=== PATIENT | male | born 1955 | race Caucasian/White ===

== ENCOUNTER 2018-06-20 09:58 | Inpatient (IN) | payer OTHER ==
[~2018-06-20] VITALS: Ht 172.7 cm; Wt 74.8 kg
[2018-06-20] MEDS ORDERED: NAPR-1009 PO (10:18)
[2018-06-20 11:50] LABS: *BILIRUBIN,URIN NEGATIVE (NEGATIVE); *BLOOD, URINE 3+ (NEGATIVE); *CLARITY,URINE CLOUDY (CLEAR); *COLOR,URINE DARK YELLOW (YELLOW); *KETONES,URINE NEGATIVE (NEGATIVE); *PROTEIN,URINE 2+ (NEGATIVE); *UROBILINOGEN,URINE 0.2 E.U./dl (NORMAL); LEUKOCYTE ESTERASE ,URINE 1+ (NEGATIVE); NITRITE, URINE NEGATIVE (NEGATIVE); UGLUCOSE 1+ (NEGATIVE)
[2018-06-20 11:54] LABS: BACTERIA,URINE FEW /HPF (NONE SEEN); RBC,URINE TNTC /HPF (0-3); SQUAMOUS EPITHELIAL CELL,UR FEW /HPF (NONE SEEN)
[2018-06-20 11:54] LABS: BASOPHILS # (AUTO) 0.1 K/uL (0.0-8.0); BASOPHILS % (AUTO) 1.1 % (0.0-2.0); EOSINOPHILS # (AUTO) 0.8 K/uL (0.0-0.7); EOSINOPHILS % (AUTO) 12.4 % (0.0-7.0); HEMATOCRIT 41.7 % (36.7-47.1); LYMPHOCYTES # (AUTO) 1.6 K/uL (20.0-40.0); LYMPHOCYTES % (AUTO) 23.9 % (20.5-51.5); MEAN CORPUSCULAR HEMOGLOBIN 27.4 uug (23.8-33.4); MEAN CORPUSCULAR HGB CONC 34 g/dL (32.5-36.3); MEAN CORPUSCULAR VOLUME 81.4 fL (73.0-96.2); MONOCYTES # (AUTO) 0.4 K/uL (2.0-10.0); NEUTROPHILS # (AUTO) 3.8 K/uL (1.8-8.9); NEUTROPHILS % (AUTO) 56.6 % (38.5-71.5); PLATELET COUNT (AUTO) 234 K/uL (152-348); RED BLOOD CELL COUNT(AUTO) 5.12 MIL/uL (4.06-5.63); WHITE BLOOD COUNT (AUTO) 6.8 K/uL (3.6-10.2)
[2018-06-20 12:09] LABS: CREATININE 1.1 mg/dL (0.6-1.3)
[2018-06-20 12:21] LABS: BILIRUBIN,DIRECT 0.1 mg/dL (0.0-0.2); BILIRUBIN,TOTAL 0.3 mg/dL (0.2-1.0); TOTAL PROTEIN, SERUM 7.1 g/dL (6.4-8.2)
[2018-06-20 16:13] VITALS: BP 151/79
[2018-06-20] MEDS ORDERED: ACETAMINOPHEN 325 MG TABLET PO PRN (17:00)
[2018-06-20] MEDS ORDERED: Z GUARD REMEDY PASTE 57 GM TUBE TOP PRN (17:00)
[2018-06-20] MEDS ORDERED: ONDANSETRON 4 MG/2 ML VIAL IV PRN (17:00)
[2018-06-20] MEDS ORDERED: MAGNESIUM HYDROXIDE 30 ML LIQUID UDC PO PRN (17:00)
[2018-06-20] MEDS ORDERED: CEFTRIAXONE 1 G in IV DEXTROSE 5% 50 ML IV SCH (17:00)
[2018-06-20] MEDS ORDERED: ZOLPIDEM 5 MG TABLET PO PRN (17:00)
[2018-06-20] MEDS: HYDROCODONE/APAP 5-325MG TABLET PO PRN (18:32)
[2018-06-20] MEDS: LEVOFLOXACIN 500 MG/D5W 500 MG in PREMIXED 1 EACH IV SCH (18:36)
[2018-06-20 20:08] VITALS: BP 139/78
[2018-06-20] MEDS ORDERED: KETOROLAC TROMETHAMINE 15 MG INJ IVP PRN (23:15)
[2018-06-20] MEDS: TAMSULOSIN HCL 0.4 MG CAP.SR.24H PO SCH (23:36)
[2018-06-21 05:19] VITALS: BP 131/77
[2018-06-21 06:09] LABS: BASOPHILS % (AUTO) 0.7 % (0.0-2.0); EOSINOPHILS # (AUTO) 0.5 K/uL (0.0-0.7); EOSINOPHILS % (AUTO) 9.3 % (0.0-7.0); HEMATOCRIT 39.3 % (36.7-47.1); HEMOGLOBIN 13.5 g/dL (12.5-16.3); LYMPHOCYTES # (AUTO) 1.3 K/uL (20.0-40.0); LYMPHOCYTES % (AUTO) 23.1 % (20.5-51.5); MEAN CORPUSCULAR HEMOGLOBIN 27.5 uug (23.8-33.4); MEAN CORPUSCULAR HGB CONC 34 g/dL (32.5-36.3); MEAN CORPUSCULAR VOLUME 80.1 fL (73.0-96.2); MONOCYTES # (AUTO) 0.4 K/uL (2.0-10.0); MONOCYTES % (AUTO) 6.3 % (0.0-11.0); NEUTROPHILS # (AUTO) 3.5 K/uL (1.8-8.9); NEUTROPHILS % (AUTO) 60.6 % (38.5-71.5); PLATELET COUNT (AUTO) 209 K/uL (152-348); RED BLOOD CELL COUNT(AUTO) 4.91 MIL/uL (4.06-5.63); WHITE BLOOD COUNT (AUTO) 5.7 K/uL (3.6-10.2)
[2018-06-21 06:33] LABS: CREATININE 1.2 mg/dL (0.6-1.3); MAGNESIUM 1.7 mg/dL (1.8-2.4); PHOSPHOROUS 2.9 mg/dL (2.5-4.9); POTASSIUM 3.7 mmol/L (3.5-5.1)
[2018-06-21 10:54] VITALS: BP 147/77
[2018-06-21] MEDS ORDERED: MAGNESIUM SULFATE/D5W 100 ML IV SCH (11:00)
[2018-06-21] MEDS: BLOOD SUGAR DIAGNOSTIC 1 EACH STRIP VI SCH ×3 (12:15→20:32)
[2018-06-21] MEDS ORDERED: DEXTROSE 50% 50 ML DISP.SYRIN IV PRN (12:15)
[2018-06-21 15:14] VITALS: BP 151/79
[2018-06-21] MEDS: LEVOFLOXACIN 500 MG/D5W 500 MG in PREMIXED 1 EACH IV SCH (17:08)
[2018-06-21 20:00] VITALS: BP 143/73
[2018-06-21] MEDS: TAMSULOSIN HCL 0.4 MG CAP.SR.24H PO SCH (20:26)
[2018-06-21] MEDS: INSULIN REGULAR, HUMAN 300 UNIT/3 ML VIAL SQ PRN (20:34)
[2018-06-21] MEDS ORDERED: ATORVASTATIN 20 MG TABLET PO SCH (21:00)
[2018-06-22 04:00] VITALS: BP 125/77
[2018-06-22] MEDS: BLOOD SUGAR DIAGNOSTIC 1 EACH STRIP VI SCH ×2 (05:29→11:36)
[2018-06-22] MEDS: HYDROCODONE/APAP 5-325MG TABLET PO PRN (09:39)
[2018-06-22] MEDS: INSULIN REGULAR, HUMAN 300 UNIT/3 ML VIAL SQ PRN (11:35)
[2018-06-22 12:00] VITALS: BP 129/73
[2018-06-22] MEDS ORDERED: MICAFUNGIN SODIUM 100 MG in IV NORMAL SALINE 100 ML IV SCH (12:00)
[2018-06-22] MEDS ORDERED: CEPH-570 PO (13:28)
[2018-06-22] MEDS ORDERED: FLUC200T PO (13:28)
== END 2018-06-22 12:40 | disposition home or self-care (01) | DRG 501 ==
LOC: ER 09:58 → MED 14:28
PROVIDERS: ADMIT Nurse Practitioner Acute Care; ATTEND Nurse Practitioner Acute Care
DX: B37.49 Other urogenital candidiasis (principal); E11.65 Type 2 diabetes mellitus with hyperglycemia; I51.7 Cardiomegaly; N20.2 Calculus of kidney with calculus of ureter; J98.11 Atelectasis; N21.0 Calculus in bladder; Z96.0 Presence of urogenital implants; Z59.0 Homelessness; Z87.440 Personal history of urinary (tract) infections; Z87.442 Personal history of urinary calculi
CPT/HCPCS: 36415; 70030-TC; 71045; 83605; 83690; 83735; 84100; 85025; 85730; 87040; 87086; 93005; A4663; G0378; J1815; J1885; J1956; J2248; J3475; J3490

== ENCOUNTER 2018-09-22 06:36 | Inpatient (IN) | payer OTHER ==
[~2018-09-22] VITALS: Ht 172.7 cm; Wt 72.6 kg
[~2018-09-22 06:36] MED LIST: CEPH-570 PO; FLUC200T PO; NAPR-1009 PO
--- NOTE | 2018-09-22 07:04 | NUR ---
RECEIVED SHIFT REPORT FROM KIM Wang RN. TACTICAL RESPONSE GROUP OFFICER AT BEDSIDE. PT ASLEEP IN BED AT THIS TIME. VSS.
--- NOTE | 2018-09-22 07:08 | NUR ---
PT TAKEN TO RADIOLOGY FOR CT SCAN.
[2018-09-22 07:16] LABS: BASOPHILS % (AUTO) 0.4 % (0.0-2.0); EOSINOPHILS # (AUTO) 0.3 K/uL (0.0-0.7); EOSINOPHILS % (AUTO) 4.1 % (0.0-7.0); HEMATOCRIT 35.1 % (36.7-47.1); HEMOGLOBIN 11.5 g/dL (12.5-16.3); LYMPHOCYTES # (AUTO) 0.7 K/uL (20.0-40.0); LYMPHOCYTES % (AUTO) 9.7 % (20.5-51.5); MEAN CORPUSCULAR HEMOGLOBIN 25.7 uug (23.8-33.4); MEAN CORPUSCULAR HGB CONC 33 g/dL (32.5-36.3); MEAN CORPUSCULAR VOLUME 78.7 fL (73.0-96.2); MONOCYTES # (AUTO) 0.5 K/uL (2.0-10.0); MONOCYTES % (AUTO) 6.6 % (0.0-11.0); NEUTROPHILS # (AUTO) 6.1 K/uL (1.8-8.9); NEUTROPHILS % (AUTO) 79.2 % (38.5-71.5); PLATELET COUNT (AUTO) 312 K/uL (152-348); RED BLOOD CELL COUNT(AUTO) 4.47 MIL/uL (4.06-5.63); WHITE BLOOD COUNT (AUTO) 7.6 K/uL (3.6-10.2)
--- NOTE | 2018-09-22 07:26 | NUR ---
PT BACK IN ER FROM RADIOLOGY.
[2018-09-22 07:27] LABS: CARBON DIOXIDE 25 mmol/L (21-32); CHLORIDE 104 mmol/L (98-107); CREATININE 1.3 mg/dL (0.6-1.3); GLUCOSE 139 mg/dL (74-106); POTASSIUM 3.5 mmol/L (3.5-5.1); UREA NITROGEN, BLOOD 16 mg/dL (7-18)
[2018-09-22 07:30] LABS: ETHANOL < 3 MG/DL (0-0)
[2018-09-22 07:38] LABS: ACETAMINOPHEN < 2.0 ug/mL (10-30); ALANINE AMINOTRANSFERASE 20 U/L (16-63); ALKALINE PHOSPHATASE 56 U/L (50-136); ASPARTATE AMINOTRANSFERASE 14 U/L (15-37); BILIRUBIN,DIRECT 0.1 mg/dL (0.0-0.2); BILIRUBIN,TOTAL 0.3 mg/dL (0.2-1.0); TOTAL PROTEIN, SERUM 6.3 g/dL (6.4-8.2)
[2018-09-22 07:50] LABS: *BILIRUBIN,URIN NEGATIVE (NEGATIVE); *BLOOD, URINE 3+ (NEGATIVE); *CLARITY,URINE CLOUDY (CLEAR); *COLOR,URINE YELLOW (YELLOW); *KETONES,URINE NEGATIVE (NEGATIVE); *UROBILINOGEN,URINE 0.2 E.U./dl (NORMAL); LEUKOCYTE ESTERASE ,URINE 3+ (NEGATIVE); NITRITE, URINE NEGATIVE (NEGATIVE); PH,URINE 6.5 (5.0-8.0); UGLUCOSE TRACE (NEGATIVE)
--- NOTE | 2018-09-22 07:56 | NUR ---
PAGED EPIC FOR PANEL CALL - AWAITING CALLBACK. ATTEMPT 1.
[2018-09-22] MEDS ORDERED: IV NORMAL SALINE 1000 ML BAG IV ONE (08:00)
[2018-09-22 08:03] LABS: *AMPHETAMINE, URINE NEGATIVE (NEGATIVE); *BARBITURATE, URINE NEGATIVE (NEGATIVE); *CANNABINOID, URINE NEGATIVE (NEGATIVE); *COCCAINE, URINE NEGATIVE (NEGATIVE); *OPIATE, URINE POSITIVE (NEGATIVE); *PHENCYCLIDINE SCREEN,URINE NEGATIVE (NEGATIVE); BACTERIA,URINE FEW /HPF (NONE SEEN); RBC,URINE 20-50 /HPF (0-3); SQUAMOUS EPITHELIAL CELL,UR FEW /HPF (NONE SEEN); WBC,URINE TNTC /HPF (0-3)
[2018-09-22] MEDS ORDERED: IV NORMAL SALINE 250 ML IV ONE (08:06)
[2018-09-22] MEDS ORDERED: IOHEXOL 350 100 ML INFUS..BTL ONE (08:06)
[2018-09-22] MEDS ORDERED: SWABABLE VALVE TRANSFER SET EA MC ONE (08:06)
--- NOTE | 2018-09-22 08:21 | NUR ---
IBRAHIMA ARREGUIN, AND SAKSHI CARROLL AT BEDSIDE FOR PT EVAL.
--- NOTE | 2018-09-22 08:25 | NUR ---
CONSENT FOR CTA BRAIN & CAROTIDS SIGNED BY SAKSHI CARROLL DUE TO PT'S INABILITY TO SIGN AT THIS TIME.
--- NOTE | 2018-09-22 08:29 | NUR ---
PT TAKEN TO RADIOLOGY FOR CTA.
--- NOTE | 2018-09-22 08:36 | NUR ---
ADMITTING REPORT GIVEN TO ANGE MARIE.
--- NOTE | 2018-09-22 08:50 | NUR ---
APt. admitted to TELE 305, under care of IBRAHIMA ARREGUIN. Belongs List completed
[2018-09-22] MEDS ORDERED: hydrALAZINE HCL 20 MG/1 ML VIAL IV PRN (09:00)
[2018-09-22] MEDS ORDERED: MAG HYDROX/AL HYDROX/SIMETH 30 ML LIQUID UDC PO PRN (09:00)
--- NOTE | 2018-09-22 09:00 | NUR ---
RECEIVED PATIENT FROM ER VIA GURNEY AND ADMITTED TO TELE, WITH NO C/O PAIN OR DISCOMFORT AT THIS TIME. IV ON THE RIGHT AC INTACT AND PATENT , BED ON LOW POSITION, FAMILY PARTNER AILS UPX2 AND HOB ELEVATED. SAFETY PROVIDED AT ALL TIMES, WILL CONTINUE TREATMENT PLAN.
[2018-09-22 09:12] LABS: THYROID STIMULATING HORMONE < 0.007 mIU/mL (0.358-3.740)
[2018-09-22] MEDS: DOCUSATE SODIUM 100 MG CAPSULE PO SCH (10:16)
[2018-09-22] MEDS: ASPIRIN EC 81 MG TABLET.DR PO SCH (10:16)
[2018-09-22] MEDS: ENOXAPARIN SODIUM 40 MG/0.4 ML DISP.SYRIN SQ SCH (10:17)
[2018-09-22] MEDS: BLOOD SUGAR DIAGNOSTIC 1 EACH STRIP VI SCH ×4 (11:30→21:33)
[2018-09-22 11:58] VITALS: BP 152/62
[2018-09-22] MEDS ORDERED: BLOOD SUGAR DIAGNOSTIC 1 EACH STRIP VI SCH (12:00)
[2018-09-22] MEDS ORDERED: HYDROMORPHONE 1 MG/1 ML DISP.SYRIN IV PRN (14:30)
[2018-09-22] MEDS: CEphaleXIN 500 MG CAPSULE PO SCH ×2 (14:51→23:02)
[2018-09-22] MEDS: KETOROLAC TROMETHAMINE 15 MG INJ IVP PRN (15:17)
--- NOTE | 2018-09-22 15:40 | NUR ---
patient refuse ct scan patient states that he does not need it because he already knows that he has kidney stones and that he is getting surgery for it.
--- NOTE | 2018-09-22 17:30 | NUR ---
patient alert and oriented, gave orange juice to patient due to low blood sugar and was able to tolerate it. dinner tray on the table.
[2018-09-22 17:56] VITALS: BP 136/61
--- NOTE | 2018-09-22 18:41 | NUR ---
PATIENT LAYING IN BE COMFORTABLY WITH NO C/O PAIN AT THIS TIME, NO S/S OF ACUTE DISTRESS NOTED IV INTACT AND AND PATENT . BED IN LOW POSITION WITH SIDE RAILS UP X2 AND HOB ELEVATED. SAFETY PROVIDED AT ALL TIMES, WILL CONTINUE TREATMENT PLAN WITH MOTOR HOTEL MANAGER
[2018-09-22] MEDS: MORPHINE SULFATE 4 MG/1 ML DISP.SYRIN IV PRN ×2 (19:08→23:20)
[2018-09-22] MEDS: IV NS 1000 ML 1,000 ML IV PRN (19:13)
[2018-09-22] MEDS: SIMVASTATIN 20 MG TABLET PO SCH (20:14)
[2018-09-22] MEDS: ACETAMINOPHEN 325 MG TABLET PO SCH (20:14)
[2018-09-22 20:54] VITALS: BP 164/74
[2018-09-22] MEDS ORDERED: DEXTROSE 50% 50 ML DISP.SYRIN IV PRN (21:00)
--- NOTE | 2018-09-22 23:22 | NUR ---
PRN Morphine given per patients request for Generalized pain 04/07.
[2018-09-23] VITALS: BP 136/64
--- NOTE | 2018-09-23 00:51 | NUR ---
IV Dextrose 50% effective as evidenced by current Blood glucose test result of 186. Will continue to monitor.
[2018-09-23 04:00] VITALS: BP 152/69
[2018-09-23] MEDS: PANTOPRAZOLE SODIUM 40 MG TABLET.DR PO SCH (06:57)
[2018-09-23] MEDS: BLOOD SUGAR DIAGNOSTIC 1 EACH STRIP VI SCH ×8 (06:57→21:21)
[2018-09-23] MEDS: CEphaleXIN 500 MG CAPSULE PO SCH ×3 (06:57→21:10)
[2018-09-23 07:02] LABS: BASOPHILS % (AUTO) 0.5 % (0.0-2.0); EOSINOPHILS # (AUTO) 0.6 K/uL (0.0-0.7); EOSINOPHILS % (AUTO) 8.1 % (0.0-7.0); HEMATOCRIT 34.1 % (36.7-47.1); LYMPHOCYTES # (AUTO) 1.5 K/uL (20.0-40.0); LYMPHOCYTES % (AUTO) 21.5 % (20.5-51.5); MEAN CORPUSCULAR HEMOGLOBIN 25.4 uug (23.8-33.4); MEAN CORPUSCULAR HGB CONC 32 g/dL (32.5-36.3); MEAN CORPUSCULAR VOLUME 78.9 fL (73.0-96.2); MONOCYTES # (AUTO) 0.6 K/uL (2.0-10.0); MONOCYTES % (AUTO) 8.5 % (0.0-11.0); NEUTROPHILS # (AUTO) 4.3 K/uL (1.8-8.9); NEUTROPHILS % (AUTO) 61.4 % (38.5-71.5); PLATELET COUNT (AUTO) 291 K/uL (152-348); RED BLOOD CELL COUNT(AUTO) 4.33 MIL/uL (4.06-5.63)
[2018-09-23 07:15] LABS: CREATININE 1.2 mg/dL (0.6-1.3); POTASSIUM 4.1 mmol/L (3.5-5.1)
[2018-09-23] MEDS: METHIMAZOLE 5 MG TABLET PO SCH (08:23)
[2018-09-23] MEDS: ASPIRIN EC 81 MG TABLET.DR PO SCH (08:23)
[2018-09-23] MEDS: DOCUSATE SODIUM 100 MG CAPSULE PO SCH (08:23)
[2018-09-23] MEDS: ENOXAPARIN SODIUM 40 MG/0.4 ML DISP.SYRIN SQ SCH (08:26)
[2018-09-23] MEDS: NICOTINE 14 MG/24HR PATCH TD SCH (08:29)
[2018-09-23] MEDS: MORPHINE SULFATE 4 MG/1 ML DISP.SYRIN IV PRN ×4 (09:25→20:33)
[2018-09-23] MEDS: IV NS 1000 ML 1,000 ML IV PRN (09:27)
[2018-09-23 11:30] VITALS: BP 155/67
--- NOTE | 2018-09-23 11:47 | NUR ---
Bruna was making care rounds when patient verbalized SI. Bruna made myself aware, I immediately went to patient and patient states " I want to know when I am going to be discharged to I can end my life." I explored patient feelings, patient does not voice plan at this time, just states "I can not live anymore" I asked if patient had any family, patient denies. I then asked if patient has friends, Patient states "Not anymore. They dropped off my stuff and said dont call anymore." Encouraged patient to not feel hopeless and that we are here to help. Andre aware, sitter ordered, crisis team called. Will closely monitor patient until sitter arrives. Reena, human resources supervisor aware of sitter order and situation.
[2018-09-23] MEDS: LISINOPRIL 5 MG TABLET PO SCH ×2 (11:58→21:10)
[2018-09-23] MEDS ORDERED: OLANZAPINE 10 MG VIAL IM ONE (14:30)
--- NOTE | 2018-09-23 15:09 | NUR ---
After Cliff assesed the patient a 5150 was placed. Explained the situation to the patient and the need to remove all belongings from room. Patient wants to kepp phone and computer at bedside and refusing to surrender these items. Security and melt house supervisor were called to assist. Upon removing items from room patient became aggressive and combative and yelling. Patient removed IV line and telemonitor. Dr Contreras was called and a 1time order for Zyprexa IM was given. Patient apprehensive when myself entered room and started to yell profanity. IM injection was given in DANIEL, sitter at bedside. Belongings were documented and locked in MHU, will continue to closely monitor.
--- NOTE | 2018-09-23 15:25 | NUR ---
Patient more calm, attempted to place tele monitor back on however patient refusing. Per Dr Apodaca, if patient refusing, order may be removed.
[2018-09-23] MEDS: PHENAZOPYRIDINE HCL 100 MG TABLET PO SCH (17:39)
[2018-09-23] MEDS: KETOROLAC TROMETHAMINE 15 MG INJ IVP PRN (17:39)
--- NOTE | 2018-09-23 18:40 | NUR ---
Patient resting comfortably in bed at this time with 1:1 sitter. More compliant at this time, allowed IV to be reinserted and medicated for pain however refusing fluids to be resumed at this time. Allowed tele monitor to be placed back on. No falls throughout shift, tolerating diet.
--- NOTE | 2018-09-23 19:00 | NUR ---
RECEIVED PATIENT SLEEPING COMFORTABLY IN BED WITH 1:1 SITTER FOR SAFETY. NO SIGNS OR SYMPTOMS OF ACUTE DISTRESS OR DISCOMFORT NOTED OR OBSERVED. BED IN LOW POSITION AND WITH 2 SIDERAILS UP. ALL SAFETY MEASURES IN PLACE. WILL CONTINUE TO MONITOR.
[2018-09-23 20:15] VITALS: BP 119/58
[2018-09-23] MEDS ORDERED: ATORVASTATIN 10 MG TABLET PO SCH (21:00)
[2018-09-23] MEDS: ACETAMINOPHEN 325 MG TABLET PO SCH (21:09)
[2018-09-23] MEDS: SIMVASTATIN 20 MG TABLET PO SCH (21:10)
--- NOTE | 2018-09-24 | NUR ---
PATIENT NPO FOR CONSENTED THYROID BIOPSY TODAY. SIGN POSTED ON DOOR, CARAFE EMPTIED OF REMAINING WATER, AND DRINKING CUPS/STRAWS REMOVED FROM ROOM.
[2018-09-24 04:30] VITALS: BP 163/72
--- NOTE | 2018-09-24 05:31 | NUR ---
INFORMATION SENT: FACESHEET,PROGRESS NOTES 09/23,UR 09-23 INSURANCE NAME:PETE GIBSON O / [facility] FAX NUMBER: [phone] FAX SENT
--- NOTE | 2018-09-24 05:50 | NUR ---
PATIENT ASLEEP AND RESTING COMFORTABLY IN BED. PATIENT HAS 1:1 SITTER FOR SAFETY OF SELF AND OTHERS. PATIENT WAS CALM AND SLEPT THROUGHOUT SHIFT. NPO ORDER IN PLACE DUE TO CONSENTED THYROID BIOPSY SCHEDULED FOR TODAY. PATIENT IS AO X 3 AND HAS BEEN COOPERATIVE AND CALM DURING THIS SHIFT. TELE SINUS RHYTHM @ 60. VS WNL. PATIENT STABLE.
[2018-09-24] MEDS: PANTOPRAZOLE SODIUM 40 MG TABLET.DR PO SCH (06:30)
[2018-09-24] MEDS: CEphaleXIN 500 MG CAPSULE PO SCH ×3 (06:31→21:05)
[2018-09-24] MEDS: BLOOD SUGAR DIAGNOSTIC 1 EACH STRIP VI SCH ×4 (06:38→21:11)
[2018-09-24 06:41] LABS: BASOPHILS % (AUTO) 0.7 % (0.0-2.0); EOSINOPHILS # (AUTO) 0.6 K/uL (0.0-0.7); EOSINOPHILS % (AUTO) 9.1 % (0.0-7.0); HEMOGLOBIN 11.4 g/dL (12.5-16.3); LYMPHOCYTES # (AUTO) 1.9 K/uL (20.0-40.0); LYMPHOCYTES % (AUTO) 29.1 % (20.5-51.5); MEAN CORPUSCULAR HEMOGLOBIN 25.8 uug (23.8-33.4); MEAN CORPUSCULAR HGB CONC 33 g/dL (32.5-36.3); MONOCYTES # (AUTO) 0.5 K/uL (2.0-10.0); MONOCYTES % (AUTO) 7.4 % (0.0-11.0); NEUTROPHILS # (AUTO) 3.5 K/uL (1.8-8.9); NEUTROPHILS % (AUTO) 53.7 % (38.5-71.5); PLATELET COUNT (AUTO) 272 K/uL (152-348); RED BLOOD CELL COUNT(AUTO) 4.43 MIL/uL (4.06-5.63); WHITE BLOOD COUNT (AUTO) 6.6 K/uL (3.6-10.2)
[2018-09-24 06:44] LABS: CREATININE 1.5 mg/dL (0.6-1.3)
[2018-09-24 07:02] LABS: IRON, SERUM 43 ug/dL (50-175)
[2018-09-24 07:15] LABS: FERRITIN 103 ng/mL (26-388)
--- NOTE | 2018-09-24 08:00 | NUR ---
Sleeping, appears comfortable. 1:1 sitter at bedside.
[2018-09-24] MEDS: ENOXAPARIN SODIUM 40 MG/0.4 ML DISP.SYRIN SQ SCH (09:00)
[2018-09-24] MEDS: NICOTINE 14 MG/24HR PATCH TD SCH ×2 (09:00→09:50)
[2018-09-24] MEDS: DOCUSATE SODIUM 100 MG CAPSULE PO SCH (09:49)
[2018-09-24] MEDS: ASPIRIN EC 81 MG TABLET.DR PO SCH (09:49)
[2018-09-24] MEDS: METHIMAZOLE 5 MG TABLET PO SCH (09:50)
[2018-09-24] MEDS: PHENAZOPYRIDINE HCL 100 MG TABLET PO SCH ×3 (09:50→17:18)
[2018-09-24] MEDS: LISINOPRIL 5 MG TABLET PO SCH ×2 (09:50→21:05)
[2018-09-24] MEDS: MORPHINE SULFATE 4 MG/1 ML DISP.SYRIN IV PRN ×3 (09:58→19:45)
--- NOTE | 2018-09-24 10:00 | NUR ---
Clarified preparation for thyroid biopsy, okay to eat meal, resumed. Breakfast served and medications given. Complaining of suprapubic pain/spasm. Morphine given with relief
[2018-09-24] MEDS: SERTRALINE HCL 50 MG TABLET PO SCH (12:27)
[2018-09-24] MEDS: INSULIN REGULAR, HUMAN 300 UNIT/3 ML VIAL SQ PRN ×2 (12:30→21:36)
[2018-09-24] MEDS: KETOROLAC TROMETHAMINE 15 MG INJ IVP PRN (12:37)
--- NOTE | 2018-09-24 12:37 | NUR ---
Complaining of pain with urination. Toradol given with out relief
--- NOTE | 2018-09-24 14:33 | NUR ---
Morphine IV given for suprapubic pain, with relief
--- NOTE | 2018-09-24 15:30 | NUR ---
Transported to ultrasound for thyroid biopsy
--- NOTE | 2018-09-24 16:30 | NUR ---
Back to room, s/p thyroid biopsy. Vital signs taken and recorded.
--- NOTE | 2018-09-24 17:17 | NUR ---
Blood glucose 52, juice given with dinner served.
[2018-09-24 17:49] VITALS: BP 143/63
--- NOTE | 2018-09-24 17:54 | NUR ---
Blood glucose rechecked 94. Patient comfortable, not in distress.
--- NOTE | 2018-09-24 19:00 | NUR ---
RECEIVED PATIENT AWAKE AND ALERT IN BED. IV ON RIGHT WRIST PATENT AND INTACT. PATIENT COMPLAINED OF PAIN 10/10, REQUESTED PRESCRIBED MORPHINE, AND PROVIDED ORDERED. 1:1 SITTER FOR SAFETY OF SELF AND OTHERS. ALL SAFETY MEASURES IN EFFECT. CALL LIGHT WITHIN REACH AT ALL TIMES. WILL CONTINUE TO MONITOR.
[2018-09-24] MEDS: SIMVASTATIN 20 MG TABLET PO SCH (21:04)
[2018-09-24] MEDS: ACETAMINOPHEN 325 MG TABLET PO SCH (21:04)
[2018-09-24] MEDS: FERROUS SULFATE 325 MG TABEC PO SCH (21:05)
[2018-09-24] MEDS: HYDROCODONE/APAP 5-325MG TABLET PO PRN (21:38)
--- NOTE | 2018-09-25 04:57 | NUR ---
PATIENT SLEPT THROUGH THE NIGHT WITH ZERO EPISODES OF WAKING. VS WNL, TELE SINUS @ 71, PATIENT STABLE. 1:1 SITTER PROVIDED FOR PROTECTION FROM SELF AND OTHERS. PATIENT COMPLIANT WITH ALL ASPECTS OF CARE. ORDERED ANTIBIOTICS PROVIDED PRESCRIBED AND TOLERATED WELL. ALL NURSING CARE NEEDS MET PROMPTLY. CALL LIGHT WITHIN REACH AT ALL TIMES. REPORT TO BE GIVEN TO AM SHIFT.
[2018-09-25 05:05] VITALS: BP 159/74
[2018-09-25] MEDS: CEphaleXIN 500 MG CAPSULE PO SCH ×3 (05:39→21:12)
[2018-09-25 05:40] LABS: BASOPHILS % (AUTO) 0.6 % (0.0-2.0); EOSINOPHILS # (AUTO) 0.7 K/uL (0.0-0.7); EOSINOPHILS % (AUTO) 9.8 % (0.0-7.0); HEMATOCRIT 33.8 % (36.7-47.1); HEMOGLOBIN 11.1 g/dL (12.5-16.3); LYMPHOCYTES # (AUTO) 1.6 K/uL (20.0-40.0); LYMPHOCYTES % (AUTO) 21.8 % (20.5-51.5); MEAN CORPUSCULAR HEMOGLOBIN 25.9 uug (23.8-33.4); MEAN CORPUSCULAR HGB CONC 33 g/dL (32.5-36.3); MEAN CORPUSCULAR VOLUME 78.6 fL (73.0-96.2); MONOCYTES # (AUTO) 0.6 K/uL (2.0-10.0); MONOCYTES % (AUTO) 8.1 % (0.0-11.0); NEUTROPHILS # (AUTO) 4.3 K/uL (1.8-8.9); NEUTROPHILS % (AUTO) 59.7 % (38.5-71.5); PLATELET COUNT (AUTO) 276 K/uL (152-348); WHITE BLOOD COUNT (AUTO) 7.3 K/uL (3.6-10.2)
[2018-09-25] MEDS: BLOOD SUGAR DIAGNOSTIC 1 EACH STRIP VI SCH ×4 (05:47→21:14)
[2018-09-25 05:54] LABS: CREATININE 1.4 mg/dL (0.6-1.3); POTASSIUM 4.1 mmol/L (3.5-5.1)
[2018-09-25] MEDS: PANTOPRAZOLE SODIUM 40 MG TABLET.DR PO SCH (06:15)
--- NOTE | 2018-09-25 07:25 | NUR ---
RECEIVED PATIENT IN BED AWAKE ALERT WITH EYES CLOSED BUT AROUSES EASILY HAS A SITTER OBSERVER AT THE BEDSIDE DENOES ST AT THIS TIME REMAIN ON HOLD ORDERED NO S/S OF HYPO/HYPERGLYCEMIC REACTIONS NOT IN DISTRESS AT THIS TIME.
[2018-09-25 08:07] LABS: *IMMUNOGLOBULIN G, SERUM 733 mg/dL (700-1600); IMMUNOGLOBULIN A, SERUM 103 mg/dL (61-437); IMMUNOGLOBULIN M, SERUM 31 mg/dL (20-172)
[2018-09-25] MEDS: DOCUSATE SODIUM 100 MG CAPSULE PO SCH (08:36)
[2018-09-25] MEDS: ASPIRIN EC 81 MG TABLET.DR PO SCH (08:36)
[2018-09-25] MEDS: FERROUS SULFATE 325 MG TABEC PO SCH ×2 (08:36→21:12)
[2018-09-25] MEDS: NICOTINE 14 MG/24HR PATCH TD SCH (08:36)
[2018-09-25] MEDS: PHENAZOPYRIDINE HCL 100 MG TABLET PO SCH ×3 (08:37→16:49)
[2018-09-25] MEDS: METHIMAZOLE 5 MG TABLET PO SCH (08:37)
[2018-09-25] MEDS: LISINOPRIL 5 MG TABLET PO SCH ×2 (08:37→21:13)
[2018-09-25] MEDS: ENOXAPARIN SODIUM 40 MG/0.4 ML DISP.SYRIN SQ SCH (08:43)
--- NOTE | 2018-09-25 09:00 | NUR ---
NOTED THAT PATIENT HAS AN ORDER FOR IVF INFORMED PATIENT AND HE STATED I AM DRINKING ENOUGH AND DID NOT WANT TO BE CONNECTED AT THIS TIME.COMPLIANT WITH OTHER MEDICATIONS WILL INFORM THE PROVIDER
[2018-09-25 11:18] VITALS: BP 150/68
[2018-09-25] MEDS: INSULIN REGULAR, HUMAN 300 UNIT/3 ML VIAL SQ PRN ×3 (11:35→21:15)
[2018-09-25] MEDS: SERTRALINE HCL 50 MG TABLET PO SCH (12:17)
[2018-09-25] MEDS: HYDROCODONE/APAP 5-325MG TABLET PO PRN (12:17)
[2018-09-25] MEDS: LORAZEPAM 1 MG TABLET PO PRN (12:45)
--- NOTE | 2018-09-25 12:45 | NUR ---
GETTING ANXIOUS STANDING IN THE MIDDLE OF THE HALLWAY NEEDING CONSTANT REDIRECTIONS MEDICATED WITH ATIVAN ORDERED WILL CONTINUE TO OBSERVE REMAIN ON ONE ON ONE SITTER FOR SAFETY WILL CONTINUE TO PROVIDE SAFE AND THERAPEUTIC ENVIRONMENT AT ALL TIMES.
[2018-09-25] MEDS: MORPHINE SULFATE 4 MG/1 ML DISP.SYRIN IV PRN ×2 (13:25→17:31)
[2018-09-25 14:19] LABS: *OCCULT BLOOD STOOL NEGATIVE (NEGATIVE)
[2018-09-25 15:08] VITALS: BP 151/69
--- NOTE | 2018-09-25 15:15 | NUR ---
DR MURRAY HERE TO SEE PATIENT WITH NO NEW ORDERS AT THIS TIME
--- NOTE | 2018-09-25 17:00 | NUR ---
PATIENT VERBALISED INTENT TO KILL SELF IF HE DOES NOT GET HIS WAY BUT DID NOT ELABORATE HOW HE INTENDS TO DO IT CONTINUE TO REFUSE IVF WHEN OFFERED BUT COMPLIANT WITH HIS ORAL MEDICATIONS
[2018-09-25 19:37] VITALS: BP 156/65
--- NOTE | 2018-09-25 19:40 | NUR ---
PATIENT AWAKE SITTING ON BED, , 1:1 SITTER ON THE BED SIDE. PATIENT CALM AND CO OPERATIVE AT THIS TIME . NO VERBALIZATION OF SUICIDAL THOUGHTS. PATIENT CONCERNED ABOUT THE TRANSPORTATION TO [facility] FOR SURGERY AND THE FUTURE CARE. ASSURED THE PATIENT THAT WILL INFORM THE SYS DIR ABOUT THE CONCERN. CHARGE NURSE AWARE
--- NOTE | 2018-09-25 20:00 | NUR ---
PATIENT CONTINUING TO REFUSE IV FLUIDS.
[2018-09-25] MEDS: SIMVASTATIN 20 MG TABLET PO SCH (21:12)
[2018-09-25] MEDS: ACETAMINOPHEN 325 MG TABLET PO SCH (21:13)
[2018-09-26] MEDS: MORPHINE SULFATE 4 MG/1 ML DISP.SYRIN IV PRN ×3 (00:22→18:25)
[2018-09-26 00:40] VITALS: BP 135/59
[2018-09-26 04:00] VITALS: BP 146/68
[2018-09-26 05:40] LABS: BASOPHILS % (AUTO) 0.7 % (0.0-2.0); EOSINOPHILS # (AUTO) 0.7 K/uL (0.0-0.7); EOSINOPHILS % (AUTO) 9.3 % (0.0-7.0); HEMATOCRIT 32.5 % (36.7-47.1); HEMOGLOBIN 10.7 g/dL (12.5-16.3); LYMPHOCYTES # (AUTO) 1.5 K/uL (20.0-40.0); LYMPHOCYTES % (AUTO) 20.7 % (20.5-51.5); MEAN CORPUSCULAR HGB CONC 33 g/dL (32.5-36.3); MEAN CORPUSCULAR VOLUME 79.2 fL (73.0-96.2); MONOCYTES # (AUTO) 0.6 K/uL (2.0-10.0); MONOCYTES % (AUTO) 8.8 % (0.0-11.0); NEUTROPHILS # (AUTO) 4.3 K/uL (1.8-8.9); NEUTROPHILS % (AUTO) 60.5 % (38.5-71.5); PLATELET COUNT (AUTO) 272 K/uL (152-348)
[2018-09-26 05:52] LABS: CREATININE 1.4 mg/dL (0.6-1.3); POTASSIUM 3.9 mmol/L (3.5-5.1)
[2018-09-26] MEDS: PANTOPRAZOLE SODIUM 40 MG TABLET.DR PO SCH (06:06)
[2018-09-26] MEDS: CEphaleXIN 500 MG CAPSULE PO SCH ×3 (06:06→21:24)
--- NOTE | 2018-09-26 06:45 | NUR ---
Patient slept for 5 hrs and 10 minutes. No suicidal ideation noted. 1:1 sitter at the bed side. Continuing on pain medication for burning pain on urination. Will continue to monitor.
[2018-09-26] MEDS: BLOOD SUGAR DIAGNOSTIC 1 EACH STRIP VI SCH ×4 (07:05→21:25)
[2018-09-26 08:00] VITALS: BP 146/62
[2018-09-26] MEDS: KETOROLAC TROMETHAMINE 15 MG INJ IVP PRN (08:11)
[2018-09-26] MEDS: FERROUS SULFATE 325 MG TABEC PO SCH ×2 (08:12→21:22)
[2018-09-26] MEDS: DOCUSATE SODIUM 100 MG CAPSULE PO SCH (08:13)
[2018-09-26] MEDS: ASPIRIN EC 81 MG TABLET.DR PO SCH (08:13)
[2018-09-26] MEDS: LISINOPRIL 5 MG TABLET PO SCH ×2 (08:14→21:22)
[2018-09-26] MEDS: METHIMAZOLE 5 MG TABLET PO SCH (08:14)
--- NOTE | 2018-09-26 08:15 | NUR ---
PATIENT IS ALERT CALM AND COOPERATIVE AT THIS TIME EATING BREAKFAST MEDICATED WITH TORADOL FOR PAIN HEATHER RECORDING CLERK HERE AND SEEN PATIENT WITH NEW ORDERS.REMAIN ON ONE ON ONE SITTER FOR SAFETY RELATED TO SUICIDAL THOUGHTS NO THOUGHTS OF SUICIDE AT THIS TIME BUT PATIENT REMAINS ON HOLD.NO S/S OF HYPO/HYPERGLYCEMIC REACTIONS NOT IN DISTRESS AT THIS TIME.
[2018-09-26] MEDS: NICOTINE 14 MG/24HR PATCH TD SCH (08:18)
[2018-09-26] MEDS: ENOXAPARIN SODIUM 40 MG/0.4 ML DISP.SYRIN SQ SCH (08:20)
--- NOTE | 2018-09-26 09:02 | NUR ---
PATIENT HAS ORDER FOR CT ABDOMEN AND PELVIS SPOKE WITH RADIOLOGY DEPT STATED BASE ON THE FACT THAT PATIENT ATE BREAKFAST WILL WAIT FOR AN HOUR OR SO BEFORE TAKING PATIENT DOWN FOR THE TEST.
--- NOTE | 2018-09-26 10:45 | NUR ---
CT ABDOMEN COMPLETED ORDERED AWAITING FOR RESULTS.
[2018-09-26] MEDS: IV NS 1000 ML 1,000 ML IV PRN ×2 (10:49→21:00)
[2018-09-26 11:00] VITALS: BP 148/60
[2018-09-26] MEDS: INSULIN REGULAR, HUMAN 300 UNIT/3 ML VIAL SQ PRN ×3 (11:34→21:25)
--- NOTE | 2018-09-26 12:15 | NUR ---
CALL RECEIVED FROM DR MAI WITH ORDER TO DISCONTINUE THE 5150 HOLD WHEN IT EXPIRES AND NOTED.
[2018-09-26] MEDS: SERTRALINE HCL 50 MG TABLET PO SCH (12:18)
[2018-09-26 15:00] VITALS: BP 151/71
--- NOTE | 2018-09-26 18:30 | NUR ---
PATIENT MEDICATED WITH MORPHINE FOR ABDOMINAL PAIN ORDERED STILL VERY DEPRESSED BUT DID NOT VERBALISE SUICIDAL THOUGHTS AT THIS TIME MADE COMFORTABLE AND WILL CONTINUE TO PROVIDE SAFE AND THERAPEUTIC ENVIRONMENT AT ALL TIMES.
[2018-09-26 19:28] VITALS: BP 155/70
--- NOTE | 2018-09-26 19:52 | NUR ---
HANDS OFF REPORT TO CAROLA MARIE. PT SHOWS NO SIGNS OF ACUTE DISTRESS. IV INTACT. 1:1 SITTER FOR SAFETY. SAFETY AND COMFORT PROVIDED.
[2018-09-26] MEDS: ACETAMINOPHEN 325 MG TABLET PO SCH (21:23)
[2018-09-26] MEDS: SIMVASTATIN 20 MG TABLET PO SCH (21:24)
--- NOTE | 2018-09-26 21:30 | NUR ---
Received Pt awake in bed, A+Ox3, VS stable. IV to (L) hand occluded, changed to (L) upper FA, 20g inserted and infusing NS @ 100ml/hr. HS BS 180, 3 units regular insulin administered as ordered. C/o 12/06 (L) flank pain, Tylenol 650mg administered as ordered with good effect. Pt noted to ambulate to and from the bathroom with a steady gait. 1:1 sitter d/c per medical charge entry specialist. Bed in lowest and locked position, side rails up x2, safety emphasized. Will continue to monitor.
[2018-09-27 00:27] VITALS: BP 149/50
[2018-09-27 05:09] VITALS: BP 166/70
--- NOTE | 2018-09-27 05:22 | NUR ---
INFORMATION SENT: FACESHEET,PROGRESS NOTES 09/24,09/25,09/26,UR 09-24,09-25,09-26 INSURANCE NAME[facility] FAX NUMBER: [phone] FAX SENT
[2018-09-27] MEDS: MORPHINE SULFATE 4 MG/1 ML DISP.SYRIN IV PRN ×2 (05:26→12:07)
[2018-09-27] MEDS: CEphaleXIN 500 MG CAPSULE PO SCH ×3 (05:27→21:02)
[2018-09-27 06:07] LABS: BASOPHILS % (AUTO) 0.6 % (0.0-2.0); EOSINOPHILS # (AUTO) 0.6 K/uL (0.0-0.7); EOSINOPHILS % (AUTO) 8.7 % (0.0-7.0); HEMATOCRIT 34.3 % (36.7-47.1); HEMOGLOBIN 11.3 g/dL (12.5-16.3); LYMPHOCYTES # (AUTO) 1.3 K/uL (20.0-40.0); MEAN CORPUSCULAR HEMOGLOBIN 26.1 uug (23.8-33.4); MEAN CORPUSCULAR HGB CONC 33 g/dL (32.5-36.3); MEAN CORPUSCULAR VOLUME 79.3 fL (73.0-96.2); MONOCYTES # (AUTO) 0.6 K/uL (2.0-10.0); MONOCYTES % (AUTO) 8.1 % (0.0-11.0); NEUTROPHILS # (AUTO) 4.3 K/uL (1.8-8.9); NEUTROPHILS % (AUTO) 63.6 % (38.5-71.5); PLATELET COUNT (AUTO) 276 K/uL (152-348); RED BLOOD CELL COUNT(AUTO) 4.33 MIL/uL (4.06-5.63); WHITE BLOOD COUNT (AUTO) 6.8 K/uL (3.6-10.2)
[2018-09-27 06:18] LABS: CREATININE 1.3 mg/dL (0.6-1.3); POTASSIUM 3.9 mmol/L (3.5-5.1)
[2018-09-27] MEDS: PANTOPRAZOLE SODIUM 40 MG TABLET.DR PO SCH (06:30)
[2018-09-27] MEDS: BLOOD SUGAR DIAGNOSTIC 1 EACH STRIP VI SCH ×4 (06:30→20:45)
[2018-09-27] MEDS: IV NS 1000 ML 1,000 ML IV PRN ×2 (06:38→14:33)
--- NOTE | 2018-09-27 07:25 | NUR ---
RECEIVED PATIENT IN BED AWAKE ALERT AND AWARE DENIES PAIN OD DISCOMFORTS AT THIS TIME IVF IN PROGRESS ORDERED WITH NO S/S OF INFILTERATION ON SITE.PATIENT MADE COMFORTABLE D/C PLANNING TO [facility] SOON BED BECOMES AVAILABLE PATIENT AWARE.
[2018-09-27 08:00] VITALS: BP 148/62
[2018-09-27 08:07] LABS: A/G RATIO 1.1 (0.7-1.7); ALPHA-1-GLOBULIN 0.3 g/dL (0.0-0.4); ALPHA-2-GLOBULIN 1.1 g/dL (0.4-1.0); BETA GLOBULIN 0.7 g/dL (0.7-1.3); GAMMA GLOBULIN 0.7 g/dL (0.4-1.8); GLOBULIN, TOTAL 2.7 g/dL (2.2-3.9); M-SPIKE Not Observed g/dL (Not Observed)
[2018-09-27] MEDS: FERROUS SULFATE 325 MG TABEC PO SCH ×2 (08:27→20:31)
[2018-09-27] MEDS: ASPIRIN EC 81 MG TABLET.DR PO SCH (08:27)
[2018-09-27] MEDS: NICOTINE 14 MG/24HR PATCH TD SCH (08:28)
[2018-09-27] MEDS: DOCUSATE SODIUM 100 MG CAPSULE PO SCH (08:28)
[2018-09-27] MEDS: LISINOPRIL 5 MG TABLET PO SCH ×2 (08:28→20:31)
[2018-09-27] MEDS: METHIMAZOLE 5 MG TABLET PO SCH (08:31)
[2018-09-27] MEDS: ENOXAPARIN SODIUM 40 MG/0.4 ML DISP.SYRIN SQ SCH (08:35)
[2018-09-27] MEDS: ACETAMINOPHEN 325 MG TABLET PO PRN ×2 (08:59→21:33)
--- NOTE | 2018-09-27 10:42 | NUR ---
HEATHER HERE TO SEE PATIENT STATED THAT THE COMPLIANCE CONSULTANT QUILL BUNCHER AND SORTER IS MAKING ARRANGEMENTS TO POSSIBLY DISCHARGE PATIENT TOMMOROW TO [facility] FOR THE SCHEDULED SURGERY.PATIENT AWARE AND VERY WORRIED.
[2018-09-27] MEDS: INSULIN REGULAR, HUMAN 300 UNIT/3 ML VIAL SQ PRN (11:20)
[2018-09-27 12:00] VITALS: BP 146/63
[2018-09-27] MEDS: SERTRALINE HCL 50 MG TABLET PO SCH (12:05)
[2018-09-27 16:00] VITALS: BP 164/64
[2018-09-27] MEDS: KETOROLAC TROMETHAMINE 15 MG INJ IVP PRN (16:43)
--- NOTE | 2018-09-27 16:45 | NUR ---
IV SITE INFILTERATED RESTARTED TO HIS RIGHT FOREARM WITH 3 ATTEMPTS AND IVF CONTINUED ORDERED
--- NOTE | 2018-09-27 18:00 | NUR ---
REMAIN ON IVF ORDERED WITH NO S/S OF INFILTERATION ON SITE D/C PLANNING TOMORROW AWAITING FOR FINAL PLANS FROM THE COURSE INSTRUCTOR COMMERCIAL COORDINATOR
--- NOTE | 2018-09-27 19:45 | NUR ---
PATIENT AWAKE, ALERT ORIENTED, NO SOB NO CHEST PAIN NOTED. ASSISTED WITH TOILETING, CONT ON 1;1 SITTER RISK FOR FALL, CONT TO MONITOR.
[2018-09-27 19:58] VITALS: BP 142/74
[2018-09-27] MEDS: SIMVASTATIN 20 MG TABLET PO SCH (20:31)
[2018-09-27] MEDS: LORAZEPAM 1 MG TABLET PO PRN (21:32)
[2018-09-28] MEDS: IV NS 1000 ML 1,000 ML IV PRN ×4 (02:00→21:39)
[2018-09-28 05:12] VITALS: BP 130/76
[2018-09-28] MEDS: PANTOPRAZOLE SODIUM 40 MG TABLET.DR PO SCH (06:03)
[2018-09-28] MEDS: CEphaleXIN 500 MG CAPSULE PO SCH ×3 (06:03→21:17)
[2018-09-28] MEDS: BLOOD SUGAR DIAGNOSTIC 1 EACH STRIP VI SCH ×4 (06:03→20:19)
--- NOTE | 2018-09-28 06:29 | NUR ---
PATIENT AWAKE, NO SOB NO CHEST PAIN, PATIENT VOIDING FREELY, NO FURTHER COMPLAIN OF PAIN AT THIS TIME. PATIENT ON KEFLEX FOR UTI WITH NO ADVERSE REACTION NOTED. PATIENT DRINKS FLUID. CONT TO MONITOR.
--- NOTE | 2018-09-28 06:49 | NUR ---
INFORMATION SENT: ALVIN,UR-09/27,PROGRESS NOTES 4-1 INSURANCE NAME: [facility]E PHAM [facility] FAX NUMBER: [phone] FAX SENT
[2018-09-28 07:33] LABS: BASOPHILS % (AUTO) 0.6 % (0.0-2.0); EOSINOPHILS # (AUTO) 0.6 K/uL (0.0-0.7); EOSINOPHILS % (AUTO) 9.7 % (0.0-7.0); HEMOGLOBIN 11.7 g/dL (12.5-16.3); LYMPHOCYTES # (AUTO) 1.1 K/uL (20.0-40.0); LYMPHOCYTES % (AUTO) 17.8 % (20.5-51.5); MEAN CORPUSCULAR HEMOGLOBIN 25.5 uug (23.8-33.4); MEAN CORPUSCULAR HGB CONC 32 g/dL (32.5-36.3); MEAN CORPUSCULAR VOLUME 78.7 fL (73.0-96.2); MONOCYTES # (AUTO) 0.5 K/uL (2.0-10.0); MONOCYTES % (AUTO) 7.9 % (0.0-11.0); PLATELET COUNT (AUTO) 253 K/uL (152-348); RED BLOOD CELL COUNT(AUTO) 4.58 MIL/uL (4.06-5.63); WHITE BLOOD COUNT (AUTO) 6.3 K/uL (3.6-10.2)
[2018-09-28 07:36] LABS: CREATININE 1.1 mg/dL (0.6-1.3); POTASSIUM 3.9 mmol/L (3.5-5.1)
--- NOTE | 2018-09-28 07:39 | NUR ---
SLEEPING AT THIS TIME BUT AROUSES EASILY ON ROUNDS DENIES PAIN OR DISCOMFORTS AT THIS TIME REMAIN ON IVF ORDERED WITH NO S/S OF INFILTERATION ON SITE AWAITING FOR INPUT FOR THE TRANSFER TO [facility] TODAY.
[2018-09-28] MEDS: MORPHINE SULFATE 4 MG/1 ML DISP.SYRIN IV PRN ×3 (08:42→23:58)
[2018-09-28] MEDS: DOCUSATE SODIUM 100 MG CAPSULE PO SCH (08:46)
[2018-09-28] MEDS: METHIMAZOLE 5 MG TABLET PO SCH (08:46)
[2018-09-28] MEDS: LISINOPRIL 5 MG TABLET PO SCH ×2 (08:47→20:08)
[2018-09-28] MEDS: ASPIRIN EC 81 MG TABLET.DR PO SCH (08:47)
[2018-09-28] MEDS: FERROUS SULFATE 325 MG TABEC PO SCH ×2 (08:47→20:08)
[2018-09-28] MEDS: NICOTINE 14 MG/24HR PATCH TD SCH (08:47)
[2018-09-28] MEDS: ENOXAPARIN SODIUM 40 MG/0.4 ML DISP.SYRIN SQ SCH (08:59)
--- NOTE | 2018-09-28 10:00 | NUR ---
FUR TRIMMING MACHINE OPERATOR AND THE EVP OPERATIONS STATED TO KEEP PATIENT NPO BECAUSE THE PLAN IS FOR PATIENT TO BE DISCHARGE AND HE WILL GO TO [facility] TODAY TO HAVE HIS SURGERY PATIENT ALREADY TOOK HIS AM MEDICATIONS TODAY BUT DID NOT EAT BREAKFAST YET.PATIENT NOTIFIED.
--- NOTE | 2018-09-28 11:41 | NUR ---
PATIENT SEEN BY DILLAN ALEXANDRA I NOTIFIED HIM THAT PATIENTS BLOOD PRESSURE HAS BEEN CONSISTENTLY HIGH DESPITE HIS HYPERTENSIVE MEDICATIONS NAD UNABLE TO GIVE HIM THE PRN ORDERED BECAUSE OF THE PARAMETER STATED OKAY WILL SEE PATIENT AND WILL ADJUST NEEDED.
[2018-09-28] MEDS: KETOROLAC TROMETHAMINE 15 MG INJ IVP PRN (11:47)
[2018-09-28 11:55] VITALS: BP 167/77
[2018-09-28] MEDS: SERTRALINE HCL 50 MG TABLET PO SCH (12:12)
--- NOTE | 2018-09-28 13:15 | NUR ---
PER THE TRAFFIC POLICE OFFICER ITS OKAY FOR PATIENT TO EAT NOW BECAUSE HIS SURGERY IS SCHEDULED FOR TOMORROW AT [facility].LUNCH SERVED AND HE ATE WITH GOOD APPETITE.
[2018-09-28] MEDS ORDERED: SIMV20TA6 PO (15:20)
[2018-09-28] MEDS ORDERED: LISI-607 PO (15:20)
[2018-09-28] MEDS ORDERED: FERR325T28 PO (15:20)
[2018-09-28] MEDS ORDERED: ASPI-618 PO (15:20)
[2018-09-28] MEDS ORDERED: SERT50TA12 PO (15:20)
--- NOTE | 2018-09-28 15:31 | NUR ---
PATIENT IS FOR DISCHARGE TOMORROW TO [facility] FOR BLADDER SURGERY WILL BE PICKED UP AT 0500 BY CALL THE [facility] WILL BE NOTHING BY MOUTH AFTER MID NITE PATIENT AWARE..
[2018-09-28 15:44] VITALS: BP 159/71
[2018-09-28] MEDS: INSULIN REGULAR, HUMAN 300 UNIT/3 ML VIAL SQ PRN (17:07)
--- NOTE | 2018-09-28 17:31 | NUR ---
PER THE MEDICAID NURSE THERE IS CONFUSSION TO PATIENT BEING ABLE TO GO TO [facility] TOMORROW ARRANGED UNCERTAIN AT THIS TIME.
--- NOTE | 2018-09-28 18:25 | NUR ---
VERY UPSET AND VERY CONCERN ABOUT THE CANCELLATION AND UNCERTAINTY OF HIS SURGERY AND OUTCOME STATED HAVING LOTS OF PAIN MEDICATED WITH MORPHINE ORDERED WILL OBSERVE.
--- NOTE | 2018-09-28 19:00 | NUR ---
PATIENT AWAKE, NO SOB NO CHEST PAIN, NO COMPLAIN OF PAIN AT THIS TIME. PATIENT VOIDING WITH NIKA COLOR URINE IN MODERATE AMOUNT. CONT ABX FOR UTI WITH NO ADVERSE REACTION NOTED. PATIENT AMBULATE WITH STEADY GAIT CONT TO MONITOR.
[2018-09-28 19:27] VITALS: BP 161/74
[2018-09-28] MEDS: ACETAMINOPHEN 325 MG TABLET PO PRN (20:08)
[2018-09-28] MEDS: SIMVASTATIN 20 MG TABLET PO SCH (20:08)
[2018-09-29 03:33] VITALS: BP 149/60
[2018-09-29] MEDS: CEphaleXIN 500 MG CAPSULE PO SCH (06:06)
[2018-09-29] MEDS: IV NS 1000 ML 1,000 ML IV PRN (06:06)
[2018-09-29] MEDS: PANTOPRAZOLE SODIUM 40 MG TABLET.DR PO SCH (06:06)
[2018-09-29] MEDS: BLOOD SUGAR DIAGNOSTIC 1 EACH STRIP VI SCH ×2 (06:09→11:39)
--- NOTE | 2018-09-29 06:18 | NUR ---
PATIENT AWAKE, NO SOB NO CHEST, PAIN. CONT ON PAIN MANAGEMENT DUE URETHRA PAIN. PATIENT VOIDING ADEQUATELY WITH NIKA COLOR URINE. CONT ON ABX FOR UTI, CALL LIGHT WITHIN REACH. NO S/S OF HYPO/HYPERGYLCEMIA NOTED, CONT TO MONITOR. CALL LIGHT WITHIN REACH.
--- NOTE | 2018-09-29 07:19 | NUR ---
INFORMATION SENT: ALVIN,UR-09/28,PROGRESS NOTES 4-2 INSURANCE [facility] FAX NUMBER: [phone] FAX SENT
[2018-09-29] MEDS: FERROUS SULFATE 325 MG TABEC PO SCH (09:09)
[2018-09-29] MEDS: ASPIRIN EC 81 MG TABLET.DR PO SCH (09:09)
[2018-09-29] MEDS: DOCUSATE SODIUM 100 MG CAPSULE PO SCH (09:09)
[2018-09-29] MEDS: METHIMAZOLE 5 MG TABLET PO SCH (09:09)
[2018-09-29] MEDS: LISINOPRIL 5 MG TABLET PO SCH (09:09)
[2018-09-29] MEDS: NICOTINE 14 MG/24HR PATCH TD SCH (09:10)
[2018-09-29] MEDS: MORPHINE SULFATE 4 MG/1 ML DISP.SYRIN IV PRN (09:10)
[2018-09-29] MEDS: ENOXAPARIN SODIUM 40 MG/0.4 ML DISP.SYRIN SQ SCH (09:12)
--- NOTE | 2018-09-29 10:01 | NUR ---
Patient's IV access dislodged, removed completely. No IV access, confirmed with charge nurse. No restart.
--- NOTE | 2018-09-29 11:03 | NUR ---
09/29/18 10:30 Ananya from [facility] [ ] called and stated that they are the patient's IPA. Updated her on the patient's situation and provided her with Misael's phone number from [facility]. 12:10 The patient's RN, Peace, informed the credit reporter that the patient took all of his belongings and left. He refused transportation and stated he will take a cab to go to the urology clinic. 12:35 Updated Misael from [employer] about the patient's discharge.
[2018-09-29 11:40] VITALS: BP 146/65
[2018-09-29] MEDS: INSULIN REGULAR, HUMAN 300 UNIT/3 ML VIAL SQ PRN (11:49)
--- NOTE | 2018-09-29 12:10 | NUR ---
Discharge note: Patient alert and oriented x4, ambulatory. No distress noted upon discharge. Patient states discomfort upon urination, he is discharged and given instructions by Evan Fischer NP to follow up with [facility] for procedure. Patient understands instructions and states he is heading straight to [facility] right now. Patient wristband removed. Walked patient down to [employer] on lower level at 1210 and patient stated he ordered a taxi cab and will get there himself. Patient refused transportation option given here. Prescriptions given to patient, patient states he will fill them on his own. Addendum: 09/29/18 at 1234 by BLANCA BHATT RN All belongings returned to patient.
== END 2018-09-29 12:15 | disposition short-term general hospital (02) | DRG 420 ==
LOC: ER 06:38 → TELE3 08:37 → MEDSURG3 09-23 11:25 → TELE3 09-23 11:29 → MEDSURG3 09-27 16:35
PROVIDERS: ADMIT Nurse Practitioner Acute Care; ATTEND Nurse Practitioner Acute Care
PROC: 0GBG3ZX Excision of Left Thyroid Gland Lobe, Percutaneous Approach, Diagnostic (ICD-10-PCS; principal; 2018-09-24)
PROC: BG44ZZZ Ultrasonography of Thyroid Gland (ICD-10-PCS; principal; 2018-09-24)
PROC: 0GBH3ZX Excision of Right Thyroid Gland Lobe, Percutaneous Approach, Diagnostic (ICD-10-PCS; principal; 2018-09-24)
DX: E11.649 Type 2 diabetes mellitus with hypoglycemia without coma (principal); N17.0 Acute kidney failure with tubular necrosis; G93.41 Metabolic encephalopathy; E44.0 Moderate protein-calorie malnutrition; D68.59 Other primary thrombophilia; M48.02 Spinal stenosis, cervical region; N28.1 Cyst of kidney, acquired; E05.20 Thyrotoxicosis with toxic multinodular goiter without thyrotoxic crisis or storm; F17.210 Nicotine dependence, cigarettes, uncomplicated; Z86.73 Personal history of transient ischemic attack (TIA), and cerebral infarction without residual deficits; Z68.24 Body mass index [BMI] 24.0-24.9, adult; Z59.0 Homelessness; Z96.0 Presence of urogenital implants; I65.01 Occlusion and stenosis of right vertebral artery; I65.22 Occlusion and stenosis of left carotid artery; Z91.5 Personal history of self-harm; F09 Unspecified mental disorder due to known physiological condition; D64.9 Anemia, unspecified; M25.78 Osteophyte, vertebrae; N21.0 Calculus in bladder; Z87.442 Personal history of urinary calculi; Z91.19 Patient's noncompliance with other medical treatment and regimen; N20.0 Calculus of kidney; N39.0 Urinary tract infection, site not specified; B96.89 Other specified bacterial agents as the cause of diseases classified elsewhere; F32.9 Major depressive disorder, single episode, unspecified; I10 Essential (primary) hypertension; N13.9 Obstructive and reflux uropathy, unspecified
CPT/HCPCS: 36415; 70030-TC; 70450; 70496; 71045; 72125; 76942; 80307; 82784; 83550; 83605; 84155; 84165; 84443; 84481; 85025; 85610; 85651; 85730; 86334; 87040; 87086; 92526; 92610; 93005; 97116; 97165; 97530; A4663; G0378; G0480; G0480-TC; J1170; J1650; J1815; J1885; J2270; J2358; J3490; J7030; J7050; Q9967